=== PATIENT | female | born 1985 | race Caucasian/White ===

== ENCOUNTER 2021-04-12 09:29 | Emergency (ER) | payer SELFPAY ==
[2021-04-12] MEDS ORDERED: KETOROLAC 30 MG/ML INJ ONE (10:13)
--- NOTE | 2021-04-12 11:08 | RAD REPORT ---
EXAM DESCRIPTION: RAD - Knee Left 3 View - 04/12/2021 10:38 am CLINICAL HISTORY: PAIN COMPARISON: No comparisons FINDINGS: No acute fracture or dislocation is seen. Small suprapatellar joint effusion is present.
--- NOTE | 2021-04-12 11:31 | ER ---
Nurse's Notes [facility] Name: Tian Greco Age: 35 yrs Sex: Female : 1985 Arrival Date: 04/12/2021 Time: 09:34 Bed 10 Private MD: Diagnosis: Sprain of unspecified site of left knee;Pain in left knee Presentation: 04/12 09:41 Chief complaint: Patient states: slipped and twisted left knee in the shower. aa5 Coronavirus screen: At this time, the client does not indicate any symptoms associated with coronavirus-19. Ebola Screen: No symptoms or risks identified at this time. Initial Sepsis Screen: Does the patient meet any 2 criteria? HR > 90 bpm. Does the patient have a suspected source of infection? No. Patient's initial sepsis screen is negative. Risk Assessment: Do you want to hurt yourself or someone else? Patient reports no desire to harm self or others. Onset of symptoms was April 12, 2021. 09:41 Acuity: LINDA 4 aa5 09:41 Method Of Arrival: Wheelchair aa5 Historical: - Allergies: 09:42 PENICILLINS; aa5 - PMHx: 09:42 Anxiety; PTSD; Depressive disorder; Bipolar disorder; aa5 - PSHx: 09:42 section; aa5 - Immunization history:: Client reports receiving the El \T\ El single-dose vaccine. - Social history:: Smoking status: Patient reports the use of cigarette tobacco products, smokes one-half pack cigarettes per day. Screenin:42 Abuse screen: Denies threats or abuse. Denies injuries from another. Nutritional iw screening: No deficits noted. Tuberculosis screening: No symptoms or risk factors identified. Fall Risk None identified. Assessment: 10:41 General: Appears in no apparent distress. Behavior is calm, cooperative. Pain: iw Complains of pain in left knee. Neuro: No deficits noted. Level of Consciousness is awake, alert, obeys commands, Oriented to person, place, time, situation. Respiratory: Respiratory effort is even, unlabored, Respiratory pattern is regular, symmetrical. Derm: Skin is intact, is healthy with good turgor. Musculoskeletal: Range of motion: limited in left knee. Vital Signs: 09:41 BP 130 / 81; Pulse 92; Resp 18 S; Temp 97.8(TE); Pulse Ox 98% on R/A; Weight 151.95 kg aa5 (R); Height 5 ft. 6 in. (167.64 cm) (R); 09:41 Body Mass Index 54.07 (151.95 kg, 167.64 cm) aa5 ED Course: 09:34 Patient arrived in ED. as 09:41 Arm band placed on. aa5 09:42 Triage completed. aa5 09:51 Sammy Quintanilla NP is PHCP. pm1 09:51 Gavin Clayton MD is Attending Physician. pm1 09:52 Nehla Gary RN is Primary Nurse. iw 10:38 Knee Left 3 View In Process Unspecified. EDMS 10:41 Patient has correct armband on for positive identification. iw 11:42 Knee immobilizer applied on left knee. dh3 11:48 No provider procedures requiring assistance completed. Patient did not have IV access iw during this emergency room visit. Administered Medications: 10:22 Drug: Ketorolac 60 mg Route: IM; Site: left vastus lateralis; iw 14:55 Follow up: Response: No adverse reaction iw Outcome: 11:31 Discharge ordered by . pm1 11:48 Discharged to home ambulatory, with family. iw 11:48 Condition: good 11:48 Discharge instructions given to patient, Instructed on discharge instructions, follow up and referral plans. Demonstrated understanding of instructions, follow-up care, medications. 11:49 Patient left the ED. iw Signatures: Dispatcher [employer] EDMS Allyson Salas as Nehal Gary RN RN Rosa Tang RN RN aa5 Sammy Quintanilla NP [employer] REPRESENTATIVE pm1 Galilea Trejo 3 Corrections: (The following items were deleted from the chart) 09:43 09:42 PSHx: Carotid endarterectomy; aa5 aa5 09:43 09:42 Immunization history: Client reports receiving the 2nd dose of the Covid vaccine, aa5 aa5 09:44 09:41 Initial Sepsis Screen: Does the patient meet any 2 criteria? No. Patient's aa5 initial sepsis screen is negative. Does the patient have a suspected source of infection? No. Patient's initial sepsis screen is negative. aa5
--- NOTE | 2021-04-12 11:32 | EDPHYS ---
Physician Documentation [facility] Name: Tian Greco Age: 35 yrs Sex: Female : 1985 Arrival Date: 04/12/2021 Time: 09:34 Bed 10 Private MD: ED Physician Gavin Clayton HPI: 04/12 10:05 This 35 yrs old Female presents to ER via Wheelchair with complaints of Knee Injury. pm1 10:05 The patient presents with pain, that is acute. The complaints affect the left knee. pm1 Context: The problem was sustained Stepping out of shower, resulted from twisting of the extremity, Slip on water, the patient is able to ambulate, Problem is a result from a previous injury: No. Onset: The symptoms/episode began/occurred today. Modifying factors: The symptoms are alleviated by elevating leg, remaining still, the symptoms are aggravated by movement, weight bearing, bending knee. Associated signs and symptoms: Pertinent negatives numbness, tingling. Treatment prior to arrival includes: no previous treatment. Severity of symptoms: in the emergency department the symptoms are unchanged. The patient has not experienced similar symptoms in the past. The patient has not recently seen a physician. Patient was stepping out of the shower and slipped resulting in twisting of the left knee. Patient did not fall to the ground. Historical: - Allergies: 09:42 PENICILLINS; aa5 - PMHx: 09:42 Anxiety; PTSD; Depressive disorder; Bipolar disorder; aa5 - PSHx: 09:42 section; aa5 - Immunization history:: Client reports receiving the El \T\ El single-dose vaccine. - Social history:: Smoking status: Patient reports the use of cigarette tobacco products, smokes one-half pack cigarettes per day. ROS: 10:05 Constitutional: Negative for fever, chills, and weight loss, Cardiovascular: Negative pm1 for chest pain, palpitations, and edema, Respiratory: Negative for shortness of breath, cough, wheezing, and pleuritic chest pain. 10:05 Skin: Negative for injury, rash, and discoloration, Neuro: Negative for headache, weakness, numbness, tingling, and seizure. 10:05 MS/extremity: Positive for pain, swelling, of the left knee, Negative for decreased range of motion, deformity. 10:05 All other systems are negative. Exam: 10:05 Constitutional: This is a well developed, well nourished patient who is awake, alert, pm1 and in no acute distress. Head/Face: Normocephalic, atraumatic. 10:05 Cardiovascular: Exam negative for acute changes, Rate: normal, Rhythm: regular, Pulses: no pulse deficits are appreciated. 10:05 Respiratory: Exam negative for acute changes, respiratory distress, shortness of breath. 10:05 Musculoskeletal/extremity: Extremities: noted in the left knee: Pain to lateral aspect of knee with rotation of lower leg to medial aspect and pain to medial aspect of knee with rotation of lower leg to lateral aspect. No pain with drawer test, There is no evidence of decreased ROM, deformity. 10:05 Skin: Exam negative for 10:05 Neuro: Exam negative for acute changes, Orientation: is normal, Mentation: is normal, Motor: is normal, moves all fours. Vital Signs: 09:41 BP 130 / 81; Pulse 92; Resp 18 S; Temp 97.8(TE); Pulse Ox 98% on R/A; Weight 151.95 kg aa5 (R); Height 5 ft. 6 in. (167.64 cm) (R); 09:41 Body Mass Index 54.07 (151.95 kg, 167.64 cm) aa5 MDM: 10:01 Patient medically screened. pm1 11:30 Data reviewed: vital signs. Data interpreted: Pulse oximetry: on room air is 98 %. pm1 Interpretation: normal. 11:30 Counseling: I had a detailed discussion with the patient and/or guardian regarding: the pm1 historical points, exam findings, and any diagnostic results supporting the discharge/admit diagnosis, radiology results, the need for outpatient follow up, a orthopedic surgeon, possible MRI and further treatment and evaluation, to return to the emergency department if symptoms worsen or persist or if there are any questions or concerns that arise at home. 04/12 10:05 Order name: Knee Left 3 View XRAY pm1 04/12 10:05 Order name: Knee Left 3 View; Complete Time: 11:11 EDMS 04/12 11:12 Order name: Knee Immobilizer; Complete Time: 11:41 pm1 Administered Medications: : Drug: Ketorolac 60 mg Route: IM; Site: left vastus lateralis; iw 14:55 Follow up: Response: No adverse reaction iw Disposition: 13:38 Co-signature as Attending Physician, Gavin Clayton MD I agree with the assessment and kdr plan of care. Disposition Summary: 04/12/21 11:31 Discharge Ordered Location: Home pm1 Problem: new pm1 Symptoms: have improved pm1 Condition: Stable pm1 Diagnosis - Sprain of unspecified site of left knee pm1 - Pain in left knee pm1 Followup: pm1 - With: Emergency Department - When: As needed - Reason: Worsening of condition Followup: pm1 - With: Private Physician - When: 2 - 3 days - Reason: Recheck today's complaints, Continuance of care, Re-evaluation by your physician Discharge Instructions: - Discharge Summary Sheet pm1 - Elastic Bandage and RICE Therapy pm1 - Knee Sprain, Adult pm1 - Crutch Use, Adult pm1 - How to Use a Knee Immobilizer pm1 - Acute Knee Pain, Adult pm1 Forms: - Medication Reconciliation Form pm1 - Thank You Letter pm1 - Antibiotic Education pm1 - Prescription Opioid Use pm1 Prescriptions: - Diclofenac Sodium 75 mg Oral tablet,delayed release (DR/EC) - take 1 tablet by ORAL route 2 times per day As needed; 30 tablet; Refills: 0, pm1 Product Selection Permitted Signatures: Dispatcher [employer] EDMS Gavin Clayton MD MD kdr Nehal Gary, RN RN iw Rosa Tang RN RN aa5 Sammy Quintanilla, [employer] pm1 Corrections: (The following items were deleted from the chart) 09:43 09:42 PSHx: Carotid endarterectomy; aa5 aa5 09:43 09:42 Immunization history: Client reports receiving the 2nd dose of the Covid vaccine, aa5 aa5 11:42 11:12 Crutches ordered. pm1 dh3
[2021-04-12 11:56] VITALS: BP 130/81; TEMP 97.8; O2SAT 98
== END 2021-04-12 11:49 | disposition home or self-care (01) ==
LOC: ER 09:29
DX: S83.92XA Sprain of unspecified site of left knee, initial encounter (principal); X50.1XXA Overexertion from prolonged static or awkward postures, initial encounter; Z88.0 Allergy status to penicillin; F17.210 Nicotine dependence, cigarettes, uncomplicated
CPT/HCPCS: 96372; 99283

== ENCOUNTER 2024-08-27 14:54 | Emergency (ER) | payer SELFPAY ==
--- OUTSIDE RECORDS SUMMARY | 2024-08-27 14:58 | XMS REPORT | Continuity of Care Document ---
Author Name Unknown Address [address] [facility] [address] [place] [address] Organization [facility] [place] Address [address] [facility] 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 Name Role Phone [place], [place] Dept Of Primary Care Physician Becky Beltran MD Attending Clinician [phone] Surgery, Colorectal Attending Clinician UnavailBinu Peterson MD Attending Clinician [phone] Libia Castro Attending Clinician [phone] Debra Muñoz MD Attending Clinician [phone] LIBIA CASTRO Attending Clinician Unavailable DEBRA MUÑOZ Attending Clinician Unavailable DEBRA MUÑOZ Attending Clinician Unavailable TEJINDER LOTT Attending Clinician Unavailable Tejinder Lott MD Attending Clinician [phone] Cesia Harris Attending Clinician [phone] CESIA BAUTISTA Attending Clinician Unavailable DEBRA ANTHONY Attending Clinician Unavailable Debra Muñoz MD Admitting Clinician [phone] DEBRA MUÑOZ Admitting Clinician Unavailable CESIA BAUTISTA Admitting Clinician Unavailable Payers Payer Name Policy Type Policy Number Effective Date Expirati on Date Source [facility] [id number] 8191-07-23 00:00:00 Problems Condition Name Condition Details Condition Category Status Onset Date Resolution Date Last Treatment Date Treating Clinician Comments Source 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 [facility] delivery delivered delivery delivered Disease Resolve d 05-22 00:00: 00 2009-01-29 00:00:00 2021-12-05 00:10:03 [facility] Poor growth, affecting management of mother, antepartum condition or complicati on Poor growth, affecting management of mother, antepartum condition or complicati on Disease Resolve d 2005-05 00:00: 00 2009-01-29 00:00:00 2009-01-29 21:56:20 [facility] Oligohydra mnios, antepartum Oligohydra mnios, antepartum Disease Resolve d 2005-05 00:00: 00 2006-05-22 00:00:00 2006-05-22 04:08:35 [facility] Other specified complicati on, antepartum (646.83) Other specified complicati on, antepartum (646.83) Disease Resolve d 2005-05 00:00: 00 2006-05-22 00:00:00 2006-05-22 04:08:35 [facility] Allergies, Adverse Reactions, Alerts Allergy Name Allergy Type Status Severity Reaction(s) Onset Date Inactive Date Treating Clinician Comments Source Penicill ins Propensi ty to adverse reaction s Active Anaphylaxis 2005-05 00:00: 00 [facility] Penicill ins Propensi ty to adverse reaction s Active Anaphylaxis 2005-05 00:00: 00 [facility] PENICILL INS Drug Class Active Anaphylaxis 2005-05 00:00: 00 [facility] Social History Social Habit Start Date Stop Date Quantity Comments Source History of tobacco use 1998-08-31 00:00:00 Cigarette Smoker [facility] [place] Sexual orientation [facility] Alcoholic beverage intake 2024-07-18 00:00:00 2024-07-18 00:00:00 Ex-drinker (finding) [facility] History of Social function 2024-07-18 00:00:00 2024-07-18 00:00:00 [facility] [place] Cigarettes smoked current (pack per day) - Reported 2024-03-01 00:00:00 2024-03-01 00:00:00 [facility] [place] Cigarette pack-years 2024-03-01 00:00:00 2024-03-01 00:00:00 [facility] Tobacco use and exposure 2024-03-01 00:00:00 2024-03-01 00:00:00 Smokeless tobacco non-user [facility] [place] Sex assigned at 1985 00:00:00 1985 00:00:00 [facility] [place] Smoking Status Start Date Stop Date Source Tobacco smoking consumption unknown [facility] Smokes tobacco daily 2024-03-01 00:00:00 [facility] [place] Never smoked tobacco [facility] Medications Ordered Medication Name Filled Medication Name Start Date Stop Date Current Medication? Ordering Clinician Indication Dosage Frequency Signature (SIG) Comments Components Source ziprasidone (GEODON) 40 mg capsule 2023-05 09:16: 03 06-04 00:00 :00 No 40mg Take 1 capsule by mouth in the morning and 1 capsule in the evening. Take with meals. [facility] carBAMazepi ne 100 mg 12 hr tablet 2023-05 09:16: 03 06-04 00:00 :00 No 100mg Take 1 tablet by mouth in the morning and 1 tablet in the evening. [facility] morphine (2 mg/mL) injection 2 mg 2023-05 15:24: 12 03-01 18:53 :36 No 2mg 2 mg, Slow IV Push, Q5MIN PRN, 5 doses, Starting on Mon03/01/24 at 1024, Until Mon03/01/24 at 1353, Routine, Pain (scale 4-6), PACU [facility] ondansetron (ZOFRAN (PF)) injection 4 mg 2023-05 15:24: 12 03-01 18:53 :36 No 4mg 4 mg, Slow IV Push, PRN, 1 dose, Starting on Mon03/01/24 at 1024, Until Mon03/01/24 at 1353, Routine, Nausea and Vomiting (N/V), PACU [facility] BUPivacaine liposome (PF) (EXPAREL (PF)) 1.3 % (13.3 mg/mL) 266 mg, bupivacaine -epinephrin e-pf (SENSORCAIN E W/EPINEPHRI NE) 0.5 %-1:200,000 20 mL 2023-05 15:04: 00 03-01 15:34 :30 No PRN, Starting on Mon03/01/24 at 1004, Intra-op [facility] celecoxib (CELEBREX) capsule 200 mg 2023-05 12:15: 54 03-01 12:28 :00 No 200mg 200 mg, Oral, O.R. HOLDING ONCE, 1 dose, Starting on Mon03/01/24 at 0715, Until Mon03/01/24 at 0728, Routine, Pain, DSU Pre-op [facility] gabapentin (NEURONTIN) capsule 600 mg 2023-05 12:15: 54 03-01 12:28 :00 No 600mg 600 mg, Oral, O.R. HOLDING ONCE, 1 dose, Starting on Mon03/01/24 at 0715, Until Mon03/01/24 at 0728, Routine, Surgery/Pr ocedure, DSU Pre-op [facility] acetaminoph en (TYLENOL) tablet 1,000 mg 2023-05 12:15: 54 03-01 12:27 :00 No 1000mg 1,000 mg, Oral, O.R. HOLDING ONCE, 1 dose, Starting on Mon03/01/24 at 0715, Until Mon03/01/24 at 0727, Routine, Surgery / Procedure, DSU Pre-op [facility] lisinopriL 20 mg tablet 2023-05 11:53: 34 06-04 00:00 :00 No 20mg Take 1 tablet by mouth in the morning. [facility] OXcarbazepi ne 600 mg tablet 2023-05 11:53: 34 06-04 00:00 :00 No 600mg Take 1 tablet by mouth in the morning and 1 tablet in the evening. [facility] polyethylen e glycol 3350 (MIRALAX) 17 gram/dose powder 2023-05 11:53: 34 06-04 00:00 :00 No 17g Take 17 g by mouth in the morning. [facility] gabapentin 300 mg capsule 2023-05 00:00: 03-23 04:59 :00 No [id number] 300mg Take 1 capsule by mouth every 8 (eight) hours for 21 days. For pain scale 1-3 [facility] acetaminoph en 325 mg tablet 2023-05 00:00: 03-23 04:59 :00 No [id number] 650mg Take 2 tablets by mouth every 8 (eight) hours for 21 days. [facility] ibuprofen 800 mg tablet 2023-05 00:00: 00 03-23 04:59 :00 No [id number] 800mg Take 1 tablet by mouth in the morning and 1 tablet at noon and 1 tablet in the evening. Take with meals. Do all this for 21 days. [facility] methocarbam oL 500 mg tablet 2023-05 00:00: 00 03-23 04:59 :00 No [id number] 500mg Take 1 tablet by mouth 4 (four) times daily for 21 days. [facility] acetaminoph en-codeine (TYLENOL-CO DEINE #3) 300-30 mg tablet 2023-05 00:00: 00 03-09 04:59 :00 No [id number] 1{tbl} Take 1 tablet by mouth every 6 (six) hours as needed (pain) for up to 7 days. Indication s: acute pain [facility] ibuprofen 600 mg tablet 01-31 13:16: 02 03-01 00:00 :00 No 600mg Take 1 tablet by mouth in the morning and 1 tablet in the evening. Take with meals. [facility] prazosin HCl (PRAZOSIN ORAL) 01-31 13:15: 40 06-04 00:00 :00 No 40mg Take 40 mg by mouth at bedtime. [facility] busPIRone 30 mg tablet 01-31 13:15: 40 06-04 00:00 :00 No 30mg Take 1 tablet by mouth in the morning and 1 tablet in the evening. [facility] citalopram (CELEXA) 20 mg tablet 01-31 13:15: 40 06-04 00:00 :00 No 20mg Take 1 tablet by mouth in the morning. [facility] iopamidol (ISOVUE 370-500 mL) injection 80 mL 12-11 16:30: 00 12-11 16:30 :00 No [id number] 80mL 80 mL, Intravenou s, ONCE, 1 dose, On Mon12/12/23 at 1130, Routine [facility] FENTanyl PF (SUBLIMAZE (PF)) injection 50 mcg 12-11 14:45: 00 12-11 14:30 :00 No 50ug 50 mcg, Slow IV Push, ONCE, 1 dose, On Mon12/12/23 at 0945, Routine [facility] clindamycin (CLEOCIN) 300 mg capsule 2015-05 00:00: 00 12-11 00:00 :00 No 300mg Take 1 capsule by mouth 4 (four) times daily. [facility] methylPREDN ISolone (MEDROL DOSE-ELIZABET) 4 mg tablets 2015-05 00:00: 00 12-11 00:00 :00 No 84mg Take 21 tablets by mouth SEE-INSTRU CTIONS. follow package directions [facility] HYDROcodone -acetaminop hen (NORCO 5) 5-325 mg tablet 2015-05 2-14 00:00: 00 12-11 00:00 :00 No 1{tbl} Take 1 tablet by mouth every 6 (six) hours as needed for Pain unrelieved by non-narcot ic analgesics . [facility] vitamin w/FA ( RX OR GENERIC EQUIVALENT) tablet 08-09 00:00: 00 12-11 00:00 :00 No 1{tbl} Take 1 Tab by mouth daily. [facility] docusate calcium (SURFAK) 240 mg capsule 08-09 00:00: 00 12-11 00:00 :00 No 240mg Take 1 Cap by mouth once daily as needed for Constipati on. [facility] ferrous sulfate 325 mg (65 mg Iron) tablet 08-09 00:00: 00 12-11 00:00 :00 No 325mg Take 1 Tab by mouth 2 (two) times daily. [facility] ibuprofen (MOTRIN) 600 mg tablet 08-09 00:00: 00 12-11 00:00 :00 No 600mg Take 1 Tab by mouth every 6 (six) hours as needed for Pain. [facility] Vital Signs Vital Name Observation Time Observation Value Comments S fam Systolic blood pressure 2024-07-17 18:00:00 145 mm[Hg] [facility] Diastolic blood pressure 2024-07-17 18:00:00 78 mm[Hg] [facility] Heart rate 2024-07-17 18:00:00 75 /min [facility] Body temperature 2024-07-17 18:00:00 36.5 Nataly [facility] [place] Respiratory rate 2024-07-17 18:00:00 18 /min [facility] Body height 2024-07-17 18:00:00 167.6 cm [facility] Body weight 2024-07-17 18:00:00 158.759 kg [facility] BMI 2024-07-17 18:00:00 56.49 kg/m2 [facility] Oxygen saturation in Arterial blood by Pulse oximetry 2024-07-17 18:00:00 99 /min [facility] Systolic blood pressure 2024-03-21 14:17:00 131 mm[Hg] [facility] Diastolic blood pressure 2024-03-21 14:17:00 89 mm[Hg] [facility] Heart rate 2024-03-21 14:17:00 95 /min [facility] Body temperature 2024-03-21 14:17:00 37.06 Nataly [facility] Body height 2024-03-21 14:17:00 167.6 cm [facility] [place] Body weight 2024-03-21 14:17:00 170.779 kg [facility] BMI 2024-03-21 14:17:00 60.77 kg/m2 [facility] Oxygen saturation in Arterial blood by Pulse oximetry 2024-03-21 14:17:00 97 /min [facility] Systolic blood pressure 2024-03-01 16:25:00 110 mm[Hg] [facility] Diastolic blood pressure 2024-03-01 16:25:00 87 mm[Hg] [facility] Heart rate 2024-03-01 16:25:00 72 /min [facility] Body temperature 2024-03-01 16:25:00 36.72 Nataly [facility] [place] Respiratory rate 2024-03-01 16:25:00 20 /min [facility] [place] Oxygen saturation in Arterial blood by Pulse oximetry 2024-03-01 16:25:00 96 /min [facility] Body height 2024-03-01 12:46:00 167.6 cm [facility] [place] Body weight 2024-03-01 12:46:00 154.2 kg [facility] BMI 2024-03-01 12:46:00 54.87 kg/m2 [facility] Systolic blood pressure 2024-03-01 15:30:00 145 mm[Hg] [facility] Diastolic blood pressure 2024-03-01 15:30:00 92 mm[Hg] [facility] Heart rate 2024-03-01 15:30:00 93 /min [facility] Respiratory rate 2024-03-01 15:30:00 30 /min [facility] [place] Oxygen saturation in Arterial blood by Pulse oximetry 2024-03-01 15:30:00 98 /min [facility] Body temperature 2024-03-01 15:29:00 36.56 Nataly [facility] [place] Body height 2024-03-01 12:46:00 167.6 cm [facility] [place] Body weight 2024-03-01 12:46:00 154.2 kg [facility] [place] BMI 2024-03-01 12:46:00 54.87 kg/m2 [facility] [place] Systolic blood pressure 2024-02-01 18:17:00 115 mm[Hg] [facility] Diastolic blood pressure 2024-02-01 18:17:00 76 mm[Hg] [facility] Heart rate 2024-02-01 18:17:00 99 /min [facility] Body temperature 2024-02-01 18:17:00 36.67 Nataly [facility] [place] Body height 2024-02-01 18:17:00 167.6 cm [facility] Body weight 2024-02-01 18:17:00 154.223 kg [facility] BMI 2024-02-01 18:17:00 54.88 kg/m2 [facility] Oxygen saturation in Arterial blood by Pulse oximetry 2024-02-01 18:17:00 96 /min [facility] Systolic blood pressure 2023-12-12 16:45:00 118 mm[Hg] [facility] Diastolic blood pressure 2023-12-12 16:45:00 51 mm[Hg] [facility] Heart rate 2023-12-12 16:45:00 79 /min [facility] Respiratory rate 2023-12-12 16:45:00 18 /min [facility] [place] Oxygen saturation in Arterial blood by Pulse oximetry 2023-12-12 16:45:00 98 /min [facility] Body temperature 2023-12-12 13:37:00 36.78 [facility] Body height 2023-12-12 13:37:00 167.6 cm [facility] Body weight 2023-12-12 13:37:00 145.151 kg [facility] BMI 2023-12-12 13:37:00 51.65 kg/m2 [facility] Procedures Procedure Date / Time Performed Performing Clinician Source BI ULTRASOUND BREAST LIMITED BILATERAL 2024-06-04 18:32:51 Libia Castro [facility] BI DIAGNOSTIC TOMOSYNTHESIS BILATERAL 2024-06-04 18:05:27 [facility] EXAM UNDER ANESTHESIA 2024-03-01 13:20:00 Barb Muñoz [facility] CT PELVIS W CONTRAST 2023-12-12 15:36:25 Boom Bautista [facility] TEST, SERUM 2023-12-12 14:26:00 Joao Bautista se [facility] BASIC METABOLIC PANEL (NA, K, CL, CO2, GLUCOSE, BUN, CREATININE, CA) 2023-12-12 14:26:00 Cesia Bautista [facility] CBC WITH DIFF 2023-12-12 14:26:00 Cesia Bautista [facility] Encounters Start Date/Time End Date/Time Encounter Type Admission Type Attending Clinicians Care Facility Care Department Encounter ID Source 2024-07-22 00:00:00 2024-07-22 09:56:33 Prep For Surgery [facility]tr[facility] 1.2.840.114 350.1.13.10 4.2.7.2.686 [id number] [facility] 2024-07-17 13:00:00 2024-07-18 08:25:57 Office Visit Surgery, Colorectal [facility] Anderson Surgery, Colorectal [facility] 1.2.840.114 350.1.13.10 4.2.7.2.686 [id number] [facility] 2024-06-04 10:01:15 2024-06-04 23:59:00 Hospital Encounter Libia Castro [facility] 1.2.840.114 350.1.13.10 4.2.7.2.686 [id number] [facility] 2024-06-04 08:00:00 2024-06-04 23:42:00 Hospital Encounter Debra Muñoz [facility] 1.2.840.114 350.1.13.10 4.2.7.2.686 [id number] [facility] 2024-06-04 10:00:54 2024-06-04 10:00:54 Hospital Encounter Libia Castro [facility] 1.2.840.114 350.1.13.10 4.2.7.2.686 [id number] [facility] 2024-06-04 00:00:00 2024-06-04 00:00:00 Outpatient LIBIA [facility]S [facility] [id number] [facility] 2024-06-04 00:00:00 2024-06-04 00:00:00 Outpatient LIBIA [facility] [id number] [facility] 2024-03-21 09:30:00 2024-03-21 10:09:39 Outpatient R DEBRA MUÑOZ [facility] [id number] [facility] 2024-03-21 09:30:00 2024-03-21 10:09:39 Office Visit Debra Muñoz [facility] 1.2.840.114 350.1.13.10 4.2.7.2.686 [id number] [facility] 2024-03-01 07:15:00 2024-03-01 11:40:00 Outpatient DEBRA ROBERTSON [facility] [id number] [facility] 2024-03-01 07:15:00 2024-03-01 11:40:00 Hospital Encounter Debra Muñoz [facility] 1.2.840.114 350.1.13.10 4.2.7.2.686 [id number] [facility] 2024-03-01 08:50:00 2024-03-01 10:35:00 Surgery Debra Muñoz [facility] 1.2.840.114 350.1.13.10 4.2.7.2.686 [id number] [facility] 2024-02-08 09:00:00 2024-02-08 09:00:00 Outpatient TEJINDER REINOSO [facility] [id number] [facility] 2024-02-01 13:15:00 2024-02-01 15:13:30 Outpatient R ZOHREH DEBRA MUÑOZ [facility] [id number] [facility] 2024-02-01 13:15:00 2024-02-01 15:13:30 Office Visit Debra Muñoz [facility] 1.2.840.114 350.1.13.10 4.2.7.2.686 [id number] [facility] 2024-02-01 00:00:00 2024-02-01 14:37:32 Telephone Debra Muñoz [facility] 1.2.840.114 350.1.13.10 4.2.7.2.686 [id number] [facility] 2024-01-08 00:00:00 2024-01-08 23:56:30 Telephone Tejinder Lott [facility] 1.2.840.114 350.1.13.10 4.2.7.2.686 [id number] [facility] 2024-01-08 08:00:00 2024-01-08 08:00:00 Outpatient R TEJINDER LOTT [facility] [id number] [facility] 2023-12-18 10:45:00 2023-12-18 10:45:00 Outpatient R TEJINDER LOTT [facility] [id number] [facility] 2023-12-12 08:39:00 2023-12-12 11:54:00 Emergency Cesia Bautista [facility] 1.2.840.114 350.1.13.10 4.2.7.2.686 [id number] [facility] 2023-12-12 08:39:00 2023-12-12 11:54:00 Emergency X CESIA BAUTISTA [facility] ERT [id number] [facility] Results Test Description Test Time Test Comments Results Result Comments Source BI Ultrasound breast limited bilateral 2024-05-22 4 21:09:45 Examination:BI DIAGNOSTIC TOMOSYNTHESIS BILATERALBI Ultrasound breast limited bilateral History:Patient is 38 year old and is seen for: ?Bilateral breast mass. Computer-aided detection (CAD) utilized. Comparisons : None available Findings:LeftBI DIAGNOSTIC TOMOSYNTHESIS BILATERALNo mammographic abnormality is seen at the palpable area of concern per the physician's order at 1 o'clock, 10 cm from the nipple of the left breast.A benign oil cyst is seen in the upper inner quadrant. BI Ultrasound breast limited bilateralThere is an 8 mm x 6 mm x 5 mm oval, hyperechoic mass with circumscribed margins seen in the left breast at 1 o'clock, 10 cm from the nipple at the palpable area of concern. There is no internal vascularity. A benign oil cyst is identified at 11:00, 10 cm from the nipple, correlating with the mammographic finding.The remainder of the survey breast ultrasound is unremarkable. Morphologically normal-appearing lymph nodes are seen in the axilla. RightBI DIAGNOSTIC TOMOSYNTHESIS BILATERALNo mammographic abnormality is seen at the palpable area of concern per the physician's order at 1 o'clock, 10 cm from the nipple of the right breast. BI Ultrasound breast limited bilateralThere is no evidence of suspicious masses or other abnormal findings in the right breast.The remainder of the survey breast ultrasound is unremarkable. Morphologically normal-appearing lymph nodes are seen in the axilla. Breast Density:There are scattered areas of fibroglandular density. Family Breast History:No relevant family history has been documented for this patient. Impression:LEFT BREAST: 8 mm x 6 mm x 5 mm oval, hyperechoic mass with circumscribed margins seen in the left breast at 1 o'clock, 10 cm from the nipple at the palpable area of concern. Findings are at low suspicion for malignancy BI-RADS 4A. ? RIGHT BREAST: No mammographic or sonographic evidence of malignancy. ?No imaging findings to account for the palpable area of concern in the right breast at 1:00, 10 cm from the nipple. Clinical follow-up is also recommended, and further management of clinical findings should be based on the results of clinical evaluation. Recommendation:Ultra sound guided core biopsy - Left, 1 o'clock, 10 cm from the nipple Annual mammographic follow-up - Right BI-RADS Category: Left: 4A - Low Suspicion for MalignancyRight: 1 - NegativeOverall: 4A - Low Suspicion for Malignancy These findings and recommendations were discussed with the patient at the conclusion of today's examination. [facility] BI DIAGNOSTIC TOMOSYNTHESIS BILATERAL 2024-05-22 4 21:09:45 Examination:BI DIAGNOSTIC TOMOSYNTHESIS BILATERALBI Ultrasound breast limited bilateral History:Patient is 38 year old and is seen for: ?Bilateral breast mass. Computer-aided detection (CAD) utilized. Comparisons : None available Findings:LeftBI DIAGNOSTIC TOMOSYNTHESIS BILATERALNo mammographic abnormality is seen at the palpable area of concern per the physician's order at 1 o'clock, 10 cm from the nipple of the left breast.A benign oil cyst is seen in the upper inner quadrant. BI Ultrasound breast limited bilateralThere is an 8 mm x 6 mm x 5 mm oval, hyperechoic mass with circumscribed margins seen in the left breast at 1 o'clock, 10 cm from the nipple at the palpable area of concern. There is no internal vascularity. A benign oil cyst is identified at 11:00, 10 cm from the nipple, correlating with the mammographic finding.The remainder of the survey breast ultrasound is unremarkable. Morphologically normal-appearing lymph nodes are seen in the axilla. RightBI DIAGNOSTIC TOMOSYNTHESIS BILATERALNo mammographic abnormality is seen at the palpable area of concern per the physician's order at 1 o'clock, 10 cm from the nipple of the right breast. BI Ultrasound breast limited bilateralThere is no evidence of suspicious masses or other abnormal findings in the right breast.The remainder of the survey breast ultrasound is unremarkable. Morphologically normal-appearing lymph nodes are seen in the axilla. Breast Density:There are scattered areas of fibroglandular density. Family Breast History:No relevant family history has been documented for this patient. Impression:LEFT BREAST: 8 mm x 6 mm x 5 mm oval, hyperechoic mass with circumscribed margins seen in the left breast at 1 o'clock, 10 cm from the nipple at the palpable area of concern. Findings are at low suspicion for malignancy BI-RADS 4A. ? RIGHT BREAST: No mammographic or sonographic evidence of malignancy. ?No imaging findings to account for the palpable area of concern in the right breast at 1:00, 10 cm from the nipple. Clinical follow-up is also recommended, and further management of clinical findings should be based on the results of clinical evaluation. Recommendation:Ultra sound guided core biopsy - Left, 1 o'clock, 10 cm from the nipple Annual mammographic follow-up - Right BI-RADS Category: Left: 4A - Low Suspicion for MalignancyRight: 1 - NegativeOverall: 4A - Low Suspicion for Malignancy These findings and recommendations were discussed with the patient at the conclusion of today's examination. [facility] CT PELVIS W CONTRAST 2023-11-2 3 16:28:49 ORDERING PHYSICIAN: CESIA BAUTISTA. HISTORY: Anal/rectal abscess TECHNIQUE: CT pelvis with contrast. ?CT was performed according to ALARA(As Low As Reasonably Achievable). COMPARISON: None FINDINGS: Lymph Nodes: No adenopathy is identified. Arteries: No aneurysms are seen. Small Bowel: There is no free air or focal bowel obstruction. ?No hiatalhernia is present. ?The terminal ileum is normal. Colon: Appendix is normal. There is suggestion of a perianal fistula tractlocated at the 4:00 position, and likely transsphincteric (image 82/3).Small foci of gas are located within the fistula tract, which first courseslaterally into the ischiorectal subcutaneous fat, and then takes a medialcourse to exit at the skin surface at the intergluteal cleft (image 96/3).There is no obvious second tract. ?No rim-enhancing measurable abscess ispresent. Bladder: The bladder wall is smooth. Reproductive Organs: The uterus and ovaries are normal. Osseous Structures: No suspicious lesions are identified. [facility] METABOLIC PANEL (NA, K, CL, CO2, GLUCOSE, BUN, CREATININE, CA)2023-12-12 14:57:02* Test Item Value Reference Range Interpretation Comme nts NA (test code = 7028554176) 134 mmol/L 135-145 L K (test code = 0386913282) 4.6 mmol/L 3.5-5.0 CL (test code = 5270645645) 104 mmol/L 98-108 CO2 TOTAL (test code = 4652822737) 22 mmol/L 23-31 L AGAP (test code = 1851881899) 8 2-16 BUN (test code = 5898661618) 20 mg/dL 7-23 GLUCOSE (test code = 8454257957) 108 mg/dL 70-110 CREATININE (test code = 2160-0) 0.72 mg/dL 0.50-1.04 CALCIUM (test code = 2415532339) 8.0 mg/dL 8.6-10.6 L eGFR (test code = 26276-4) 110.6 mL/min/1.73m2 CKD-EPI eGFR (2020). Assuming creatinine has been stable day-to-day for at least three months, the eGFR indicates Category G1 (>= 90 mL/min/1.73 m2) Lab Interpretation (test code = 14919-9) Abnormal [facility] WITH [id number] 14:35:00* Test Item Value Reference Range Interpretation Comme nts WBC (test code = 6690-2) 10.95 4.30-11.10 RBC (test code = 789-8) 4.04 3.93-5.25 HGB (test code = 718-7) 10.7 g/dL 11.6-15.0 L HCT (test code = 4544-3) 34.1 % 35.7-45.2 L MCV (test code = 787-2) 84.4 fL 80.6-95.5 MCH (test code = 785-6) 26.5 pg 25.9-32.8 MCHC (test code = 786-4) 31.4 g/dL 31.6-35.1 L RDW-SD (test code = 20854-9) 60.9 fL 39.0-49.9 H RDW-CV (test code = 788-0) 19.5 % 12.0-15.5 H PLT (test code = 777-3) 328 166-358 MPV (test code = 73452-9) 9.9 fL 9.5-12.9 NRBC/100 WBC (test code = 1617896173) 0.0 0.0-10.0 NRBC x10^3 (test code = 1181312333) See_Comment [Automated messa ge] The system which generated this result transmitted reference range: 10*3/?L. The reference range was not used to interpret this result as normal/abnormal. GRAN MAT (NEUT) % (test code = 770-8) 62.4 % IMM GRAN % (test code = 8611722052) 0.50 % LYMPH % (test code = 736-9) 27.8 % MONO % (test code = 5905-5) 6.8 % EOS % (test code = 713-8) 2.0 % BASO % (test code = 706-2) 0.5 % GRAN MAT x10^3(ANC) (test code = 4432408650) 6.83 10*3/uL 1.88-7.09 IMM GRAN x10^3 (test code = 5580730919) 0.06 10*3/uL 0.00-0.06 LYMPH x10^3 (test code = 731-0) 3.04 10*3/uL 1.32-3.29 MONO x10^3 (test code = 742-7) 0.74 10*3/uL 0.33-0.92 EOS x10^3 (test code = 711-2) 0.22 10*3/uL 0.03-0.39 BASO x10^3 (test code = 704-7) 0.06 10*3/uL 0.01-0.07 Lab Interpretation (test code = 92596-9) [facility], NAAT, [id number] 18:05:35* Test Item Value Reference Range Interpretation Comme nts GONORRHEA, NAAT (test code = 82292) NEGATIVE NEGATIVE IMPORTANT NO IGNACIA: SEE ANNOUNCEMENT AT [email or web address] Note: Assay methodology is nucleic acid amplification by map and chart mounter mediated amplification (TMA) utilizing the Aptima Combo 2 Assay. CHLAMYDIA, NAAT (test code = 90038) NEGATIVE NEGATIVE IMPORTANT NO IGNACIA: SEE ANNOUNCEMENT AT [email or web address] Note: Assay methodology is nucleic acid amplification by map and chart mounter mediated amplification (TMA) utilizing the Aptima Combo 2 Assay. UNLESS OTHERWISE INDICATED, ALL TESTING PERFORMED [facility] [employer], [facility]. [address] [place] [address] REHAB TRAINER: LIBIA LOVETT M.D. [place] NUMBER [id number] [place]. [id number] HIV 1/2 4TH GEN, RFLX [id number] 06:14:19* Test Item Value Reference Range Interpretation Comme nts HIV 1/2 4TH GEN, RFLX CONF ( test code = 3514) NON-REACTIVE NON-REACTIVE HEPATITIS PANEL, [id number] 06:14:19* Test Item Value Reference Range Interpretation Comme nts HEPATITIS A IgM (test code = 33709) NON-REACTIVE NON-REACTIVE HEPATITIS B CORE IgM (test code = 4644) NON-REACTIVE NON-REACTIVE HEPATITIS B SURF AG (test code = 2739) NON-REACTIVE NON-REACTIVE HEPATITIS C ANTIBODY (test code = 4675) NON-REACTIVE NON-REACTIVE INTERPRETATION HEPATITIS A: (test code = 2552) (NOTE) Hepatitis A serology shows no evidence of acute hepatitis A. INTERPRETATION HEPATITIS B: (test code = 93172) (NOTE) Hepatitis B serology shows no evidence of acute hepatitis B andno indication of exposure to hepatitis B virus in the previous gunjan eight months. INTERPRETATION HEPATITIS C: (test code = 62928) (NOTE) Hepatitis C serology shows no evidence of exposure to hepatitisC virus at this time. It can take up to 12 months after exposure tothe hepatitis C virus for antibodies to become detectable in the blood in certain patients. [id number] 03:43:38* Test Item Value Reference Range Interpretation Comme nts RPR RESULT (test code = 3501) NON-REACTIVE NON-REACTIVE RPR TITER (test code = 3500) NOT INDIC. TITER NOT INDIC. History and Physical Notes Date/Time Note Provider Source 2024-03-01 08:21:19 Patient seen and examined on 03/01/2024. There have been no changes to the interval H&P since 02/01/24. Plan for Or today for EUA, possible seton possible fistulotomy and all indicated procedures. All risks benefits and alternatives discussed with patient, including the risk of bleeding, infection, damage to surrounding tissues, need for more invasive measures to address these complications, and they are amenable to proceed with procedure. All questions were answered. Consent form is signed and in the chart. Debra Muñoz MD 03/01/2024 8:21 AM Colon and Rectal Surgery Source Note - Debra Muñoz MD - 02/01/2024 1:15 PM CDT COLORECTAL SURGERY HISTORY AND PHYSICAL NOTE REASON FOR REFERRAL: anal fistula Cc: Chief Complaint Patient presents with New Patient SUBJECTIVE: Tian Greco is a 38 year old female with HTN, presents with complaint of an perianal abscess that was painful and draining but has subsided about 5 weeks ago since taking antibiotics. She reports she had surgery to treat an anal abscess 1-2 years ago in the same area but is unsure of what surgery. This would be her 3rd time developing an infection to the same area.Today she has no complaints and denies any recent pain or discharge. She reports normal bowel movements with no extended episodes of constipation or diarrhea. Onset: 8 weeks ago Prior procedures: I&D left anal abscess Consistency of bowel movements: medium consistency, small amount each time Frequency of symptoms: none for 5 weeks Straining: yes Splinting required : no Manual disimpaction: no Incomplete evacuation : no Vaginal pressure :no Prolapsing tissue per anus: no Rectal bleeding: no Rectal pain : yes, with BM Abdominal pain: no Fecal incontinence: no Urinary incontinence : no Therapies attempted: Other : previous I&D, 1-2 years ago PMH: HTN Diabetes: no Cardiac functional status: Active. HTN, controlled Blood thinners: no Smoking status: no, current inmate Allergies Tian is allergic to penicillins. Medications Outpatient Medications Prior to Visit Medication Sig Dispense Refill busPIRone 30 mg tablet Take 1 tablet by mouth in the morning and 1 tablet in the evening. citalopram (CELEXA) 20 mg tablet Take 1 tablet by mouth in the morning. ibuprofen 600 mg tablet Take 1 tablet by mouth in the morning and 1 tablet in the evening. Take with meals. prazosin HCl (PRAZOSIN ORAL) Take 40 mg by mouth at bedtime. trazodone HCl (TRAZODONE ORAL) Take 250 mg by mouth at bedtime. No facility-administered medications prior to visit. Histories No past surgical history on file. No family history on file. Vital Signs BP 115/76 | Pulse 99 | Temp 36.7 ?C (98 ?F) | Ht 1.676 m (5' 6") | Wt 154.2 kg (340 lb) | SpO2 96% | BMI 54.88 kg/m? Physical Exam Digital Rectal Exam and Anoscopy Perineal exam:abnormal Perineal skin: left ischiorectal anal scar from previous I&D. Left lateral to anterior palpable cord, possibly fistula tract extending anteriorly towards perineum Anal wink: present Digital rectal exam: anterior midline fissure and left anterior palpable fistula tract tracking anteriorly and normal anal sphincter tone Rectocele : absent Stenosis : absent Anoscopy: not performed Mass: No masses Assessment/Plan Tian Greco is a 38 year old female who presented for recurring ischiorectal abscess likely associated with anal fistula. Plan: Referral to ENT for further evaluation of mandibular cyst prior to surgery. Schedule surgery for seton placement. Educated the patient on importance of preserving the sphincter muscle by doing a 2 step fistula repair. OSCAR Weeks-S2 02/01/2024 1:49 PM Attestation I personally examined the patient on 02/01/2024 and have verified the medical student documentation and/or findings, including the history, physical exam, and medical decision making. Additionally, I have personally performed or re-performed the physical exam and medical decision making activities of this patient's evaluation and management service. Ms Greco presents with likely complex perianal fistula extending from ischiorectal fossa to anterior perineal region and from there to anterior midline dentate line. I explained the pathophysiology of fistula in ano using diagrams and explained the surgical management based upon the Foley classification of the fistula. I recommended EUA with seton placement. I explained the risks and expected recovery for both fistulotomy as well as seton placement and how it would be different. Fistulotomy would require about 3-6 weeks for complete wound healing. Seton placement would require less time, about 1-2 weeks, but will require a second operation to definitively address the the fistula (eg LIFT procedure vs flap). All questions were answered and they agree to the plan. I spent 35 minutes of time, independent of resident or medical student time spent during the entirety of this appointment, dedicated to: PreCharting (eg, review of tests, notes, etc.), Performing a medically appropriate examination and/or evaluation, Counseling and educating the patient/family/caregiver, Ordering medications, tests, or procedures, Ordering referrals and/or communicating with other health child care aide (when not separately reported), and Documenting clinical information in the electronic or other health record. Debra Muñoz MD 02/01/2024 4:13 PM Colon and Rectal Surgery T [facility] Notes Date/Time Note Provider Source 2024-03-01 08:28:43 ATTESTATION: I agree with Dr. Paiz's operative note as detailed below with my modifications. I was scrubbed and present for the entirety of the case. 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 Exam under anesthesia 2. Left anterior external fistulotomy with seton placement 3. Posterior midline subcutaneous fistulotomy SURGEON: Debra Muñoz MD FELLOW Malcolm Arana MD TELEPHONE INFORMATION SUPERVISOR: Mindy Paiz DO ANESTHESIA: General endotracheal plus 40 mL of 0.25% Marcaine with Epinephrine and Exparel. INDICATION: Tian Greco is a 38 year old female who presented with a history of recurrent perianal abscess. History and exam were concerning for fistula in ano. We discussed exam under anesthesia, fistulotomy vs seton placement. I explained the risks of bleeding, infection, scar, pain, damage to the sphincter muscle and need for further procedures. The patient expressed understanding these risks and wished to proceed with scheduled procedure. DESCRIPTION OF PROCEDURE: The patient was taken to the operating room and general anesthesia was induced without difficulty. She was positioned in the prone torsten knife position with all pressure points padded. The buttocks was prepped with Betadine and draped in the usual sterile fashion. A timeout for safety was performed. On external inspection, there were multiple perianal skin tags and evidence of a prior left anterior perianal abscess with overlying scar. There was scarring in the anterior midline consistent with prior fissure. There was a posterior midline subcutaneous fistula. No bleeding was identified. Digital exam revealed decreased rectal tone. Upon palpation, there was a small area of induration anteriorly consistent with fistula opening. Anoscopy revealed redundant rectal mucosa with a grade II left lateral internal hemorrhoid and small non thrombosed external hemorrhoids. There was evidence of a sentinel pile anteriorly where the palpable fistula opening was appreciated. The fistula opening was identified and cannulated with a fistula probe. This probed to the abscess cavity. This appeared to be a deep fistula with external and internal anal sphincter muscle involvement. Therefore I decided to perform an external fistulotomy using cautery and seton placement. The base of the fistula tract was debrided with a curette. A red vessel loop was passed and sutured to itsellf in three places with 3-0 Silk suture. Hemostasis was obtained with cautery. The edges were marsupialized with 3-0 Vicryl suture. To conclude the procedure, bilateral pudendal nerve blocks were completed using 40cc of Marcaine mixed with Exparel in 1:1 ratio. The wound was cleaned and sterile dressings were applied. She tolerated the procedure well, was extubated in the operating room and transferred to the recovery room in stable condition.All counts were correct x 2 at completion of the procedure. DRAINS: Red vessel loop COMPLICATIONS: None SPECIMENS: None Dr. Muñoz was present and scrubbed for the entire procedure. Mindy Paiz, General Surgery PGY-4 [facility] 2024-02-20 15:55:04 Images from the original note were not included. Your procedure is at [facility] on 03/01/24. The address is [address] [place] [address], [id number]. [facility] nursing staff will call you the workday before your procedure to let you know what time to arrive.On the day of your procedure, please go inside that door and check in at the desk. Please note: You may not travel home alone and that includes in a taxi or by bus. We must speak to your Responsible Adult (who will be picking you up) the morning of your procedure, before the start of your procedure. This person must be an adult over the age of 18 years of age. Do not eat any solid food after midnight the night before surgery. You may have sips of clear liquids such as water, gatorade, and sprite up until two hours before your scheduled procedure. You may take your medications with a sip of water as directed by physician. Anticoagulants will be per physician guidance. Medication Note(s)/Instructions:Instructed to hold lisinopril day before and morning of surgery. Pending screening, we may test for COVID. If a patient tests positive, their cases are cancelled and/or rescheduled. COVID SCREENING NOTE: Denies COVID symptoms, no testing required. Additional requests, questions, concerns:CB number and availability provided. Patient verbalized understanding of pre-op instructions and voiced no further questions at this time. Rafaela Woody RN [facility] 2024-02-07 10:06:48 Scheduled I Locke [facility] 2024-02-07 09:59:34 3 week follow up is ok Debra Muñoz MD 02/07/2024 9:59 AM Colon and Rectal Surgery ET [facility] 2024-02-02 15:15:17 Provider is out of office for 2wk post op. Can post op be scheduled with BAG MAKING MACHINE OPERATOR or 3wks OK? Indira Locke [facility] 2024-02-02 09:27:46 Patient procedure was coordinated with [facility] medical staff. Procedure scheduled for 03/01/2024. Please assist with 2 week post-op appt. Lidia Johnson [facility] 2024-02-01 15:31:30 Once surgery is scheduled please let PSS know so we can schedule 2 week PO accordingly Julia Hodge [facility] 2024-02-01 14:29:07 Case request entered for for EUA / possible fistulotomy. Patient is currently and inmate at [facility]. OPC will need to coordinate procedure date with medical @ [phone]. Patient will also need 2 week post op appointment. [facility] 2024-01-13 07:28:22 This is an inmate. Spoke with medical staff and scheduled the patient correctly. They verbalized understanding. Gila Hidalgo LVN [facility] 2024-01-10 11:05:25 We do not operate on the same day for patients seen for a first time evaluation in the clinic. If she has a perianal fistula she should be rescheduled with Colorectal Surgery (Dr. Muñoz). SANTHOSH-SURGERY STAFF [facility] 2024-01-09 11:01:04 I am not sure why this was sent to me, I have not evaluated this patent before. SANTHOSH-SURGERY STAFF [facility] 2024-01-08 05:23:00 Tian Greco is a 38 year old female Pt was suppose to have surgery Pt had to cancel because she ate breakfast [facility] 2023-12-12 11:51:55 Patient given printed and verbal discharge instructions regarding abscess and fistula. Pt verbalized understanding of instructions, pt awake alert oriented, resp reg unlabored, skin w/d, color appropriate for race, moves all ext well,pt encouraged to follow up with pcp and specialty services. Advised to seek medical attention for new/prolonged/worsening of symptoms. No adverse reaction to meds given in ER noted upon discharge PIV d'cd, dressing to site, catheter in tact. Awake, alert oriented, resp reg unlabored, skin w/d, pt leaving amb with steady gait, in no apparent distress. Marjorie Masters RN [facility] 2023-12-12 08:36:18 [facility] in [facility]. Patient states that the abscess is near her anus. ET Alex Hickey RN [facility]
[2024-08-27] MEDS ORDERED: PANTOPRAZOLE 40 MG INJ ONE (15:26)
[2024-08-27] MEDS ORDERED: ONDANSETRON 4 MG/2 ML VIAL ONE (15:26)
[2024-08-27] MEDS ORDERED: NA CHLORIDE 0.9% 1,000 ML ONE (15:27)
[2024-08-27 15:37] LABS: Absolute Basophils 0.1 K/uL (0-0.5); Absolute Eosinophils 0.1 K/uL (0-0.5); Absolute Lymphocytes (CBC) 1.3 K/uL (0.7-4.9); Absolute Monocytes 0.6 K/uL (0.1-1.3); Absolute Neutrophil 11.1 K/uL (1.8-8.0); Basophils % 0.5 % (0-1.3); Eosinophils % 0.9 % (0-4.4); Hematocrit 34.4 % (36.0-45.0); Hemoglobin 11.1 g/dL (12.0-15.0); Lymphocytes % 10.1 % (15.3-44.8); MCHC 32.3 g/dL (32.0-36.0); MCV 77.5 fL (80-100); MPV 8.4 fL (7.6-11.3); Monocytes % 4.4 % (3.3-12.3); Neutrophils % 84.1 % (41.7-73.7); Nucleated Red Blood Cells % 0.1 % (0-0); Platelets 346 thou/uL (152-406); RBC Red Blood Cell Count 4.43 M/uL (3.86-4.86); Red Cell Distribution Width 17.5 % (12.1-15.2)
[2024-08-27 15:44] LABS: PT Prothrombin Time 13.5 SECONDS (10-13.0); Protime INR 1.19
[2024-08-27 16:04] LABS: Albumin 3.6 g/dL (3.4-5.0); Albumin/Globulin Ratio 0.8 (1.1-1.8); Anion Gap 14.2 mEq/L (5.0-15.0); Bilirubin Direct 0.2 mg/dL (0-0.2); Bilirubin Indirect, Calculated 0.3 mg/dL (0.2-0.8); Bilirubin Total 0.5 mg/dL (0.2-1.0); Globulin 4.4 g/dL (2.3-3.5); Magnesium 2.2 mg/dL (1.6-2.4); Potassium 3.2 mEq/L (3.5-5.1); Troponin High Sensitivity 3.8 pg/mL (<58.9)
--- NOTE | 2024-08-27 19:26 | ER ---
Nurse's Notes [facility] Name: Tian Greco Age: 38 yrs Sex: Female : 1985 Arrival Date: 08/27/2024 Time: 14:54 Bed 4 Private MD: Diagnosis: Nausea with vomiting, unspecified;Vomiting;Acute gastritis;Hypokalemia;Pneumonia due to other specified bacteria-lingular Presentation: 08/27 15:03 Chief complaint: Patient states: Abdominal pain with N/V started today EMS states: ll1 130/96, HR 103, 98% RA, fingerstick 164. Coronavirus screen: Client denies travel out of the [place] in the last 14 days. At this time, the client does not indicate any symptoms associated with coronavirus-19. Ebola Screen: Patient denies travel to an Ebola-affected area in the 21 days before illness onset. Initial Sepsis Screen: Does the patient meet any 2 criteria? No. Patient's initial sepsis screen is negative. Does the patient have a suspected source of infection? No. Patient's initial sepsis screen is negative. Risk Assessment: Do you want to hurt yourself or someone else? Patient reports no desire to harm self or others. Onset of symptoms was August 27, 2024. 15:03 Method Of Arrival: EMS ll1 15:03 Acuity: LINDA 3 ll1 Historical: - Allergies: 15:04 PENICILLINS; ll1 - PMHx: 15:04 Anxiety; Bipolar disorder; depressive disorder; PTSD; Hypertensive disorder; ll1 - PSHx: 15:04 section; ll1 - Immunization history:: Adult Immunizations up to date. - Social history:: Smoking status: Patient denies any tobacco usage or history of. Screenin:12 [facility] ED Fall Risk Assessment (Adult) History of falling in the last 3 months, ll1 including since admission No falls in past 3 months (0 pts) Confusion or Disorientation No (0 pts) Intoxicated or Sedated No (0 pts) Impaired Gait Yes (1 pt) Mobility Assist Device Used Yes (1 pt) Altered Elimination No (0 pt) Score/Fall Risk Level 0 - 2 = Low Risk Maintained a safe environment, Hourly rounding (assess needs \T\ fall precautionary measures) done. Abuse screen: Denies threats or abuse. Nutritional screening: No deficits noted. Tuberculosis screening: No symptoms or risk factors identified. Assessment: 15:37 General: Appears distressed, uncomfortable, Behavior is cooperative, appropriate for ll1 age, restless. Pain: Complains of pain in abdomen. GI: Reports lower abdominal pain, upper abdominal pain, cramping, diarrhea, nausea, vomiting. 16:53 Reassessment: No changes from previously documented assessment. Patient and/or family ll1 updated on plan of care and expected duration. Pain level reassessed. Patient is alert, oriented x 3, equal unlabored respirations, skin warm/dry/pink. 19:15 Reassessment: PT ISN'T READY FOR DISCHARGE, PENDING CT THAT HASN'T BEEN DONE YET. br2 Vital Signs: 15:37 BP 119 / 74; Pulse 87; Resp 18; Pulse Ox 100% on R/A; ll1 16:00 Pulse Ox 80% on R/A; ll1 16:05 Resp 20; Pulse Ox 90% on 2 lpm NC; ll1 16:53 BP 126 / 69; Pulse 71; Resp 18; Temp 98; Pulse Ox 94% on 2 lpm NC; ll1 18:11 BP 121 / 75; Pulse 71; Resp 17; Pulse Ox 97% on 2 lpm NC; ll1 ED Course: 15:02 Patient arrived in ED. ll1 15:03 Triage completed. ll1 15:11 Gumaro Garcia MD is Attending Physician. [facility] 15:17 Lilia Gomez, ROYA is Primary Nurse. ll1 15:25 Radiology exam delayed due to lab results not completed at this time. (HCG) nj (BUN/Creatinine) test not completed at this time. IV insertion attempt and/or patient not having appropriate IV at this time. 16:00 Provided Education on: ER procedures and process. ll1 16:00 Inserted saline lock: 22 gauge in right ,using aseptic technique. posterior arm Blood ll1 collected. Flushed with 10 mL NS. 16:11 XRAY Chest (1 view) In Process Unspecified. EDMS 17:41 Radiology exam delayed due to test not completed at this time. nj 18:12 Patient has correct armband on for positive identification. Bed in low position. Client ll1 placed on continuous cardiac and pulse oximetry monitoring. NIBP monitoring applied. 18:58 Radiology exam delayed due to test not completed at this time. nj 19:25 Nacho Tee MD is Referral Physician. [facility] 19:26 Primary Nurse role handed off by Lilia Gomez RN rv1 20:13 CT Chest, Abdomen, Pelvis - W/Contrast In Process Unspecified. EDPA 20:47 Estefany Zuñiga, RN is Primary Nurse. vc1 20:55 Test, Serum Sent. vk 20:55 PREGU Sent. vk 21:41 No provider procedures requiring assistance completed. IV discontinued, intact, br2 bleeding controlled, No redness/swelling at site. Pressure dressing applied. Administered Medications: 15:36 Drug: NS 0.9% IV 1000 ml IV at 1 bolus Per protocol; to be given as a bolus over 60 ld1 minutes Route: IV; Rate: 1 bolus; Site: right upper arm; 16:52 Follow up: Response: No adverse reaction; IV Status: Completed infusion; IV Intake: ll1 1000ml 15:36 Drug: Pantoprazole IVP 80 mg IVP once Route: IVP; Site: right upper arm; ld1 16:52 Follow up: Response: No adverse reaction ll1 15:36 Drug: Ondansetron IVP 8 mg IVP once; over 2 minutes Route: IVP; Site: right upper arm; ld1 16:52 Follow up: Response: No adverse reaction ll1 20:57 Drug: LevOfloxacin PO 750 mg PO once Route: PO; vc1 21:39 Follow up: Response: No adverse reaction br2 Medication: 18:12 VIS not applicable for this client. ll1 Intake: 16:52 IV: 1000ml; Total: 1000ml. ll1 Outcome: 19:26 Discharge ordered by . gladys 21:41 Discharged to home via wheelchair, br2 21:41 Condition: improved 21:41 Discharge instructions given to patient, Instructed on discharge instructions, follow up and referral plans. Demonstrated understanding of instructions, follow-up care, medications, Prescriptions given X 5 21:42 Patient left the ED. br2 Signatures: Dispatcher [employer] EDPA Gumaro Garcia MD MD cha Jordan, Nathan nj Lewis, Lynsay, RN RN ll1 Callie Jesus RN RN ld1 Estefany Zuñiga RN RN vc1 Brittney Zamora rv1 Usama, Arminda vk [place], Radha, RN RN br2
--- NOTE | 2024-08-27 19:26 | EDPHYS ---
Physician Documentation [facility] Name: Tian Greco Age: 38 yrs Sex: Female : 1985 Arrival Date: 08/27/2024 Time: 14:54 Bed 4 Private MD: ED Physician Gumaro Garcia HPI: 08/27 17:17 This 38 yrs old Female presents to ER via EMS with complaints of gladys Nausea/Vomiting. 17:17 The patient presents to the emergency department with nausea, vomiting, that is gladys continuous, described as dark brown. Onset: The symptoms/episode began/occurred just prior to arrival. Possible causes: unknown, bad food exposure. The symptoms are aggravated by nothing. The symptoms are alleviated by remaining still. Associated signs and symptoms: Pertinent positives: abdominal pain. Severity of symptoms: At their worst the symptoms were moderate in the emergency department the symptoms are unchanged. The patient has not experienced similar symptoms in the past. Historical: - Allergies: 15:04 PENICILLINS; ll1 - PMHx: 15:04 Anxiety; Bipolar disorder; depressive disorder; PTSD; Hypertensive disorder; ll1 - PSHx: 15:04 section; ll1 - Immunization history:: Adult Immunizations up to date. - Social history:: Smoking status: Patient denies any tobacco usage or history of. ROS: 17:21 Constitutional: Negative for fever, chills, and weight loss, Eyes: Negative for injury, gladys pain, redness, and discharge, ENT: Negative for injury, pain, and discharge, Neck: Negative for injury, pain, and swelling, Cardiovascular: Negative for chest pain, palpitations, and edema, Respiratory: Negative for shortness of breath, cough, wheezing, and pleuritic chest pain, Back: Negative for injury and pain, : Negative for injury, bleeding, discharge, and swelling, MS/Extremity: Negative for injury and deformity, Skin: Negative for injury, rash, and discoloration, Neuro: Negative for headache, weakness, numbness, tingling, and seizure, Psych: Negative for depression, anxiety, suicide ideation, homicidal ideation, and hallucinations, Allergy/Immunology: Negative for hives, rash, and allergies, Endocrine: Negative for neck swelling, polydipsia, polyuria, polyphagia, and marked weight changes, Hematologic/Lymphatic: Negative for swollen nodes, abnormal bleeding, and unusual bruising, 17:21 Abdomen/GI: Positive for abdominal pain, nausea and vomiting, nausea, vomiting, coffee slight , no blood, Exam: 17:21 Constitutional: This is a well developed, well nourished patient who is awake, alert, gladys and in no acute distress. Head/Face: Normocephalic, atraumatic. Eyes: Pupils equal round and reactive to light, extra-ocular motions intact. Lids and lashes normal. Conjunctiva and sclera are non-icteric and not injected. Cornea within normal limits. Periorbital areas with no swelling, redness, or edema. ENT: Nares patent. No nasal discharge, no septal abnormalities noted. Tympanic membranes are normal and external auditory canals are clear. Oropharynx with no redness, swelling, or masses, exudates, or evidence of obstruction, uvula midline. Mucous membranes moist. Neck: Trachea midline, no thyromegaly or masses palpated, and no cervical lymphadenopathy. Supple, full range of motion without nuchal rigidity, or vertebral point tenderness. No Meningismus. Chest/axilla: Normal chest wall appearance and motion. Nontender with no deformity. No lesions are appreciated. Cardiovascular: Regular rate and rhythm with a normal S1 and S2. No gallops, murmurs, or rubs. Normal PMI, no JVD. No pulse deficits. Respiratory: Lungs have equal breath sounds bilaterally, clear to auscultation and percussion. No rales, rhonchi or wheezes noted. No increased work of breathing, no retractions or nasal flaring. Abdomen/GI: Soft, non-tender, with normal bowel sounds. No distension or tympany. No guarding or rebound. No evidence of tenderness throughout. Back: No spinal tenderness. No costovertebral tenderness. Full range of motion. Skin: Warm, dry with normal turgor. Normal color with no rashes, no lesions, and no evidence of cellulitis. MS/ Extremity: Pulses equal, no cyanosis. Neurovascular intact. Full, normal range of motion., bilateral aka Neuro: Awake and alert, GCS 15, oriented to person, place, time, and situation. Cranial nerves II-XII grossly intact. Motor strength 5/5 in all extremities. Sensory grossly intact. Cerebellar exam normal. Normal gait. Psych: Awake, alert, with orientation to person, place and time. Behavior, mood, and affect are within normal limits. 17:21 Musculoskeletal/extremity: ROM: no acute changes, Circulation is intact in all extremities. Sensation intact. Compartment Syndrome exam of affected extremity: is normal. DVT Exam: No signs of deep vein thrombosis. no pain, no swelling, no tenderness, negative Homans' sign noted on exam, no appreciated bluish discoloration, no erythema, no increased warmth, Vital Signs: 15:37 BP 119 / 74; Pulse 87; Resp 18; Pulse Ox 100% on R/A; ll1 16:00 Pulse Ox 80% on R/A; ll1 16:05 Resp 20; Pulse Ox 90% on 2 lpm NC; ll1 16:53 BP 126 / 69; Pulse 71; Resp 18; Temp 98; Pulse Ox 94% on 2 lpm NC; ll1 18:11 BP 121 / 75; Pulse 71; Resp 17; Pulse Ox 97% on 2 lpm NC; ll1 MDM: 15:11 Medical Screening Exam initiated gladys 17:23 Differential diagnosis: Nonspecific abd pain, gastritis, cholecystitis, pancreatitis, gladys appendicitis, diverticulitis, viral gastroenteritis, gastroenteritis, bowel obstruction, cholecystitis, Cholelithiasis, diverticulitis, gastritis, gastroesophageal reflux disease, GI Bleed, Irritable bowel syndrome. Data reviewed: vital signs, nurses notes, EMS record, lab test result(s), EKG, radiologic studies, CT scan, plain films. Consideration of Admission/Observation Escalation of care including admission/observation considered. I considered the following discharge prescriptions or medication management in the emergency department Medications were administered in the Emergency Department. See MAR. Independent interpretation of the following test(s) in the Emergency Department EKG: See my EKG interpretation above. Test considered but Not performed: MRI: no mrcp. Historians other than the Patient: EMS: ems well informed. Care significantly affected by the following chronic conditions: Hypertension, Obesity, anxiety , bipolar. 08/27 15:17 Order name: Basic Metabolic Panel; Complete Time: 17:11 [facility] 08/27 15:17 Order name: CBC with Diff; Complete Time: 17:11 [facility] 08/27 15:17 Order name: LFT's; Complete Time: 17:11 [facility] 08/27 15:17 Order name: Magnesium; Complete Time: 17:11 [facility] 08/27 15:17 Order name: NT PRO-BNP; Complete Time: 17:11 [facility] 08/27 15:17 Order name: PT-INR; Complete Time: 17:11 [facility] 08/27 15:17 Order name: Troponin HS; Complete Time: 17:11 [facility] 08/27 15:17 Order name: Lipase; Complete Time: 17:11 [facility] 08/27 15:19 Order name: Type And Screen; Complete Time: 19:24 [facility] 08/27 19:26 Order name: Test, Serum 08/27 15:17 Order name: XRAY Chest (1 view); Complete Time: 20:15 [facility] 08/27 15:17 Order name: CT Chest, Abdomen, Pelvis - W/Contrast; Complete Time: 20:36 [facility] 08/27 15:17 Order name: Cardiac monitoring; Complete Time: 16:51 [facility] 08/27 15:17 Order name: EKG - Nurse/Tech; Complete Time: 16:51 [facility] 08/27 15:17 Order name: IV Saline Lock; Complete Time: 15:36 [facility] 08/27 15:17 Order name: Labs collected and sent; Complete Time: 15:36 [facility] 08/27 15:17 Order name: O2 Per Protocol; Complete Time: 15:18 [facility] 08/27 15:17 Order name: O2 Sat Monitoring; Complete Time: 15:17 [facility] 08/27 15:17 Order name: IV Saline Lock - Large Bore; Complete Time: 15:36 [facility] 08/27 20:16 Order name: PO challenge: juice; Complete Time: 20:58 [facility] Administered Medications: 15:36 Drug: NS 0.9% IV 1000 ml IV at 1 bolus Per protocol; to be given as a bolus over 60 ld1 minutes Route: IV; Rate: 1 bolus; Site: right upper arm; 16:52 Follow up: Response: No adverse reaction; IV Status: Completed infusion; IV Intake: ll1 1000ml 15:36 Drug: Pantoprazole IVP 80 mg IVP once Route: IVP; Site: right upper arm; ld1 16:52 Follow up: Response: No adverse reaction ll1 15:36 Drug: Ondansetron IVP 8 mg IVP once; over 2 minutes Route: IVP; Site: right upper arm; ld1 16:52 Follow up: Response: No adverse reaction ll1 20:57 Drug: LevOfloxacin PO 750 mg PO once Route: PO; vc1 21:39 Follow up: Response: No adverse reaction br2 Disposition Summary: 08/27/24 19:26 Discharge Ordered Notes: Location: Home [facility] Problem: new gladys Symptoms: have improved gladys Condition: Fair gladys Diagnosis - Nausea with vomiting, unspecified gladys - Vomiting gladys - Acute gastritis gladys - Hypokalemia gladys - Pneumonia due to other specified bacteria - lingular gladys Followup: gladys - With: Private Physician - When: 2 - 3 days - Reason: Recheck today's complaints, Continuance of care, Re-evaluation by your physician Followup: gladys - With: Nacho Tee MD - When: 2 - 3 days - Reason: Recheck today's complaints, Re-evaluation by your physician Discharge Instructions: - Discharge Summary Sheet gladys - Potassium Content of Foods gladys - Gastritis, Adult gladys - Nausea and Vomiting, Adult gladys - Nausea, Adult gladys - Community-Acquired Pneumonia, Adult gladys - Gastritis, Adult, Hrmc-eb-Shih gladys - Nausea and Vomiting, Adult, Oruh-fk-Tubw gladys - Community-Acquired Pneumonia, Adult, Djiz-[id number]-[id number] gladys - Hypokalemia gladys - Nausea, Adult, Mwhb-ep-Rvad gladys Forms: - Medication Reconciliation Form gladys - Antibiotic Education gladys - Prescription Opioid Use gladys - Patient Portal Instructions [facility] - Leadership Thank You Letter [facility] - SBAR form ll1 Prescriptions: - Carafate 1 gram Oral Tablet - take 1 tablet ORAL route 4 times per day take on an empty stomach, beginning on gladys waking and last dose at bedtime; 100 tablet; Refills: 0, Product Selection Permitted - Protonix 40 mg Oral tablet, delayed release (enteric coated) - take 1 tablet ORAL route every 12 hours; 60 tablet; Refills: 0, Product gladys Selection Permitted - dicyclomine 20 mg Oral tablet - take 1 tablet ORAL route 4 times per day; 28 tablet; Refills: 0, Product gladys Selection Permitted - ondansetron 8 mg Oral Tablet,disintegrating - take 1 tablet ORAL route every 8 hours prn nausea; 20 tablet; Refills: 0, gladys Product Selection Permitted - levofloxacin 750 mg Oral tablet - take 1 tablet ORAL route once daily; 7 tablet; Refills: 0, Product Selection gladys Permitted Signatures: Dispatcher [employer] Gumaro Ayala MD MD cha Lewis, Lynsay, RN RN ll1 Callie Jesus RN RN ld1 Estefany Zuñiga RN RN vc1 Radha Judge RN br2 Corrections: (The following items were deleted from the chart) 15:18 15:17 BASIC METABOLIC PANEL+C.LAB.BRZ ordered. EDMS EDMS 15:18 15:17 CBC+H.LAB.BRZ ordered. EDMS EDMS 15:18 15:17 HEPATIC FUNCTION+C.LAB.BRZ ordered. EDMS EDMS 15:18 15:17 MAGNESIUM+C.LAB.BRZ ordered. EDMS EDMS 15:18 15:17 PROBNP+C.LAB.BRZ ordered. EDMS EDMS 15:18 15:17 PROTIME (+INR)+COAG.LAB.BRZ ordered. EDMS EDMS 15:18 15:17 Troponin High Sensitivity+C.LAB.BRZ ordered. EDMS EDMS 15:18 15:17 LIPASE+C.LAB.BRZ ordered. EDMS EDMS 15:18 15:17 Test, Urine+UC.LAB.BRZ ordered. EDMS EDMS 15:18 15:18 Chest Single View+RAD.RAD.BRZ ordered. EDMS EDMS 15:18 15:18 Chest Abdomen Pelvis W Con+CT.RAD.BRZ ordered. EDMS EDMS 19:26 19:26 TEST, SERUM+SC.LAB.BRZ ordered. EDMS EDMS
--- NOTE | 2024-08-27 20:09 | RAD REPORT ---
Procedure: Chest Single View HISTORY: Abdominal pain COMPARISON: 2007 FINDINGS: The lungs appear clear of acute infiltrate. No significant pleural effusion noted. The heart is normal size. IMPRESSION: No acute abnormality is displayed.
--- NOTE | 2024-08-27 20:27 | RAD REPORT ---
EXAM: Chest Abdomen Pelvis W Cont CLINICAL INDICATION: Chest and abdominal pain TECHNIQUE: CT chest, abdomen and pelvis was performed, with 100 cc Isovue-300 IV contrast, as per de partment protocol. Axial, sagittal and coronal reconstructions were obtained. One or more of the following dose reduction techniques were used: Automated exposure control, adjustment of the mA and/o r kV according to the patient size, and/or iterative reconstruction. Unless otherwise specified, incidental findings do not require dedicated imaging follow-up. [id number]. Oral contrast not given. This limits evaluation of the bowel. COMPARISON: None FINDINGS: Most superior slice demonstrates a 3.2 cm cystic mass within the anterior subcutaneous tissues lower neck midline. On prior imaging was shown to contain fat consistent with a dermoid. Mild lingular opacity. Mild lower lobe opacities probably atelectasis. No mediastinal or hilar lymphadenopathy noted. No pleural effusion.. No pericardial effusion 1.3 cm left adrenal lesion Hounsfield unit 7 probably an adenoma. Bilateral renal cortical thinning may be related to prior inflammation. Tiny right renal calculi. No hydronephrosis Liver, spleen, pancreas and right adrenal unremarkable Small umbilical hernia No adnexal mass. Normal appendix. There is no evidence of diverticulitis IMPRESSION: Mild lingular opacity probably pneumonia
[2024-08-27] MEDS ORDERED: levoFLOXacin 250 MG TAB ONE (20:51)
[2024-08-27] MEDS ORDERED: levoFLOXacin 750 MG TAB ONE (20:51)
[2024-08-27 22:46] VITALS: TEMP 98
[2024-08-27 22:48] VITALS: BP 121/75; O2SAT 97
--- NOTE | 2024-08-28 11:59 | EKG ---
Test Date: 2024-08-27 Test Time: 16:53:20 Partnership Manager: TOAN MEASUREMENT RESULTS: Intervals: Rate: 70 VT: 164 QRSD: 108 QT: 454 QTc: 490 [place]: P: 29 VT: 164 QRS: -11 T: 24 INTERPRETIVE STATEMENTS: Normal sinus rhythm Prolonged QT Abnormal ECG Compared to ECG 10/21/2014 17:10:06 Prolonged QT interval now present Electronically Signed On 08-28-24 11:57:05 CDT by Felipe Andino
== END 2024-08-27 21:42 | disposition home or self-care (01) ==
LOC: ER 14:54
DX: R11.10 Vomiting, unspecified (principal); K29.00 Acute gastritis without bleeding; E87.6 Hypokalemia; J15.8 Pneumonia due to other specified bacteria
CPT/HCPCS: 36415; 71045; 71260; 74177; 80048; 80076; 83690; 83735; 83880; 84484; 84703; 85025; 85610; 86850; 86900; 86901; 93005; 96361; 96374; 96375; 99285; J2405; J2470; J7030; Q9967